=== PATIENT | female | born 1980 | race Caucasian/White ===

== ENCOUNTER 2019-09-11 09:26 | Emergency (ER) | payer BC, SELFPAY ==
--- NOTE | ~2019-09-11 | XR_ITS ---
XR chest 2V 09/11/2019 10:08 Indication: Shortness of breath, cough and fever Procedure: 2 view chest Comparison: No prior studies for comparison. Findings: There is right lower lobe airspace consolidation, consistent with pneumonia. Heart size nor mal. Left lung clear. No pleural effusion or pneumothorax. Impression: 1: Right lower lobe pneumonia. Reviewed, dictated and finalized at location A. TRIC POWER LINE EXAMINER Impression: 1: Right lower lobe pneumonia.
[2019-09-11 09:37] VITALS: BP 141/84; PULSE 104; RESP 20; TEMP 38; O2SAT 97
--- NOTE | 2019-09-11 09:59 | ED.URI ---
HPI - URI/Sore Throat General Chief Complaint: Upper Respiratory Infection Stated Complaint: continued flu symptoms Time Seen by Provider: 09/11/19 09:57 Source: patient and RN notes reviewed Mode of arrival: ambulatory Limitations: no limitations History of Present Illness HPI Narrative: Pt is a 39 y/o female who presents to the ED with c/o flu-like symptoms starting roughly 1 week ago. She notes that she has had a mildly-productive cough, body aches, intermittent fever, RUQ/right lower chest pain, and ABD distension for the past week. Pt states that her temperature minh to 104.5 degrees 2 days ago, but notes that she has been able to keep her temperature relatively under control with Advil. She also reports vomiting secondary to her cough and diarrhea after taking a laxative, but denies any dysuria or sore throat. Pt states that there is no chance of her currently being . MD elicited complaint: other (Flu-like symptoms) Onset (ago): week(s) (1) Consistency: constant Relieving factors: NSAID (Advil) Associated symptoms: fever, cough, abdominal pain (RUQ pain), vomiting, diarrhea and other (body aches; ABD distension) Treatments prior to arrival: ibuprofen Related Data Home Medications Medication Instructions Recorded Confirmed escitalopram oxalate [Lexapro] 20 mg PO DAILY 09/11/19 quetiapine [Seroquel] 100 mg PO HS 09/11/19 trazodone 100 mg PO HS 09/11/19 Allergies Allergy/AdvReac Type Severity Reaction Status Date / Time No Known Allergies Allergy Verified 09/11/19 09:39 Review of Systems Review of Systems: All systems reviewed & are unremarkable except as noted in HPI and below Constitutional: Constitutional: Reports body ache(s) and Reports fever(s) ENT: Denies sore throat Cardiovascular: Cardiovascular: Denies chest pain and Denies dyspnea Respiratory: Respiratory: Reports cough Gastrointestinal: Gastrointestinal: Reports abdominal pain (RUQ pain), Reports bloating, Reports diarrhea and Reports vomiting Genitourinary: Genitourinary: Denies hematuria and Denies dysuria [facility] Past Medical History Medical History Healthy female adult Surgical History Surgical History No significant past surgical history Social History Social History Smoking status: Unknown if ever smoked Gender identity (if verbalized by the patient): Female Exam Const: General: no acute distress and well developed Orientation/consciousness: oriented to person, oriented to place, oriented to time and patient oriented x3 HENMT: Head: normocephalic Neck: Neck: normal visual inspection Chest: Chest palpation & inspection: normal inspection of the chest and no tenderness Resp: Effort & Inspection: normal respiratory effort Auscultation: clear to auscultation bilaterally Cardio: Rate: tachycardic Rhythm: regular rhythm GI: GI Palp: No abdominal tenderness and Yes Soft to palpation Skin: General skin exam: normal color and turgor normal Neuro: General: oriented to person, oriented to place, oriented to time and patient oriented x3 Cognition (Neuro): normal cognition Extrem: General: normal to inspection, full ROM and no pedal edema Psych: Appearance: grossly normal Mental Status: mental status grossly normal Affect: normal affect Course Reevaluation(s) Reevaluation #1: Offered patient possible admission for observation, patient declined and wanted to go home. Date: 09/11/19 Vital Signs Vital signs: Vital Signs Temperature 38.0 C H 09/11/19 09:37 Pulse Rate 104 H 09/11/19 09:37 Respiratory Rate 20 09/11/19 09:37 Blood Pressure 141/84 H 09/11/19 09:37 Pulse Oximetry 97 09/11/19 09:37 Temperature 38.0 C H 09/11/19 09:37 Pulse Rate 64 09/11/19 13:27 Respiratory Rate 18 09/11/19 13:27 Blood Pressure 112/64 09/11/19 13:27 Pulse Oxi
[2019-09-11] MEDS: IBUPROFEN 600 MG TABLET PO (10:43)
[2019-09-11 10:45] LABS: Basophils Percent Auto 0.1 % (0.2-1.2); Eosinophils Percent Auto 0.3 % (0-4.4); Hematocrit 30.3 % (37.0-47.0); Hemoglobin 9.6 g/dL (12.0-15.0); Immature Granulocyte Absolute 0.02 K/mm3 (0.00-0.031); Immature Granulocyte Percent A 0.3 % (0-0.5); Lymphocytes Absolute Auto 0.57 K/mm3 (0.9-3.2); Lymphocytes Percent Auto 8.2 % (18.3-44.2); Mean Corpuscular HGB Conc 31.7 g/dl (32-36); Mean Corpuscular Hemoglobin 26.7 pg (26-34); Mean Corpuscular Volume 84.4 fl (80-100); Mean Platelet Volume 8.9 fl (7.4-10.4); Monocytes Absolute Auto 0.5 K/mm3 (0.1-0.6); Monocytes Percent Auto 6.7 % (2.6-8.5); Neutrophils Absolute Auto 5.8 K/mm3 (1.3-6.7); Neutrophils Percent Auto 84.4 % (45.5-73.1); Platelet Count Result 360 k/mm3 (150-375); Red Blood Count 3.59 M/mm3 (4.2-5.4); Red Cell Distribution Width 14.7 % (11.5-14.5); White Blood Count 6.9 K/mm3 (4.5-10.0)
[2019-09-11 10:59] LABS: Alanine Aminotransferase 17 U/L (4-35); Albumin Level 3.8 g/dL (3.5-5.1); Alkaline Phosphatase 135 U/L (38-126); Aspartate Amino Transferase 28 U/L (14-36); Bilirubin,Total 0.4 mg/dL (0.2-1.3); Calcium 7.7 mg/dL (8.4-10.2); Carbon Dioxide 32 mmol/L (22-30); Chloride 92 mmol/L (98-107); Estimated CRCL calculation 132 ml/min; Estimated Glomerular Filt Rate > 60; Glucose 104 mg/dL (65-105); Potassium 3.1 mmol/L (3.4-5.0); Sodium 134 mmol/L (137-145)
[2019-09-11 11:05] LABS: Blood Urea Nitrogen < 2 mg/dL (7-17)
[2019-09-11 11:25] LABS: Add Urine Microscopic? NO; Appearance Urine Clear (Clear); Bilirubin Urine Negative (Negative); Blood Urine Negative (Negative); Color Urine Colorless (Yellow); Glucose Urine UA Negative (Negative); Ketones Urine Negative (Negative); Leukocyte Esterase Ur Negative LEU/UL (Negative); Nitrate Urine Negative (Negative); Protein Urine Negative (Negative); Specific Grav Ur 1.004 (1.001-1.035); Urobilinogen Urine Negative mg/dL (<2.0)
[2019-09-11 11:35] LABS: Lactic Acid Reflex 0.6 mmol/L (0.7-2.1)
[2019-09-11] MEDS: POTASSIUM CHLORIDE 20 MEQ TABLET PO (12:13)
[2019-09-11 13:27] VITALS: BP 112/64; PULSE 64; RESP 18; O2SAT 100
== END 2019-09-11 13:29 | disposition home or self-care (01) ==
PROVIDERS: Emergency Provider Emergency Medicine; PCP Emergency Medicine
DX: J18.1 Lobar pneumonia, unspecified organism (principal)
CPT/HCPCS: 36415; 71046; 80053; 81003; 81025; 83605; 85025; 87040; 87804; 96365; 96367; A9270; J0456; J0696

== ENCOUNTER 2019-09-30 19:14 | Emergency (ER) | payer BC, SELFPAY ==
--- NOTE | ~2019-09-30 | XR_ITS ---
EXAMINATION: XR chest 1V portable DATE: 09/30/2019 19:41 INDICATION: Shortness of breath. Fever. TECHNIQUE: A single frontal view of the chest was obtained. COMPARISON: Chest 2 views 09/11/2019 FINDINGS: The chest demonstrates clear lungs without pneumonia, pleural effusion, or pneumothorax. Th e heart size is normal. There are bilateral breast implants. IMPRESSION: 1. No acute cardiopulmonary disease. Reviewed, dictated and finalized at location A.
[2019-09-30 19:21] VITALS: BP 133/99; PULSE 74; RESP 18; TEMP 37.1; O2SAT 100
--- NOTE | 2019-09-30 19:36 | ED.URI ---
HPI - URI/Sore Throat General Chief Complaint: Recheck/Abnormal Lab/Rx Stated Complaint: dx with pneumonia 2 weeks ago-fever again Time Seen by Provider: 09/30/19 19:17 Source: patient Mode of arrival: ambulatory Limitations: no limitations History of Present Illness HPI Narrative: Patient presents with chief complaint of low-grade fevers over the past 2 to 3 days. Patient states the highest that she noted was 100.3 ?F. Patient states that she was diagnosed with right lower pneumonia 2 weeks ago and was prescribed a Z-Samuel. Patient states that she felt improved, and only had a lingering dry cough until a few days ago when she noticed low-grade fever. Patient denies taking Tylenol or ibuprofen or any other antipyretics today. Patient denies any shortness of breath, wheezing, nausea, vomiting or diarrhea. Patient reports feeling some soreness in the lower right aspect where she was told that her pneumonia was present. Patient states she wonders if she to be tested for covid- 19. Patient denies international travel or known covid exposure. Related Data Allergies Allergy/AdvReac Type Severity Reaction Status Date / Time No Known Allergies Allergy Unverified 09/30/19 19:21 Review of Systems Review of Systems: Narrative: CONSTITUTIONAL: Reports a low-grade fever, denies chills, or sweats. EYES: Denies visual changes, redness, or discharge. ENT: Denies rhinorrhea, congestion, sore throat, or otalgia. CARDIOVASCULAR: Denies chest pain, palpitations, or edema. RESPIRATORY: Reports cough denies dyspnea. GASTROINTESTINAL: Denies abdominal pain, nausea, vomiting, or diarrhea. GENITOURINARY: Denies dysuria or hematuria. SKIN: Denies rash or itching. MUSCULOSKELETAL: Denies back pain, joint pain, or myalgia. NEUROLOGIC: Denies headache, numbness, dizziness, or weakness. PSYCHIATRIC: Denies anxiety or depression. PMFSH Social History Social History Gender identity (if verbalized by the patient): Female Exam Narrative: Exam Narrative: GENERAL: Well-appearing, well-nourished, and in no acute distress. HEAD: Normocephalic, atraumatic. EYES: PERRLA and EOMI. ENT: Nares clear, no rhinorrhea or epistaxis. Mucous membranes moist. Oropharynx without tonsillar hypertrophy exudate or other lesions. Bilateral TMs pearly ortiz nonbulging NECK: Supple. No adenopathy or masses. No carotid bruits or JVD CHEST: Clear to auscultation. No respiratory distress. No wheezes rales or rhonchi. Not tachypneic. Dry cough noted during exam. HEART: Regular rate and rhythm. ABDOMEN: Soft, nontender, nondistended. EXTREMITIES: Normal range of motion. No edema. SKIN: Warm, dry, no rash. NEURO: No focal deficits. Alert and oriented x3. PSYCH: Normal mood and affect. Course Vital Signs Vital signs: Vital Signs Temperature 98.7 F 09/30/19 19:21 Pulse Rate 74 09/30/19 19:21 Respiratory Rate 18 09/30/19 19:21 Blood Pressure 133/99 H 09/30/19 19:21 Pulse Oximetry 100 09/30/19 19:21 Temperature 98.7 F 09/30/19 19:21 Pulse Rate 74 09/30/19 19:21 Respiratory Rate 18 09/30/19 19:21 Blood Pressure 133/99 H 09/30/19 19:21 Pulse Oximetry 100 09/30/19 19:21 MDM - URI/Sore Throat MDM Narrative Medical decision making narrative: Patient vital signs are stable and she is not hypoxic. Patient is not tachypneic or having any trouble breathing. Patient does not have findings of pneumonia on her chest x-ray. Patient is discharged home and instructed to self quarantine. Patient instructed to contact the health department for further recommendations and instructions on possible COVID testing. Return to emergency department if you have any emergent symptoms. Differential Diagnosis Differential diagnosis: Likely upper respiratory infection, croup, otitis media, sinusitis, viral infection, bronchitis, influenza and pharyngitis Lab Data Labs: Influenza A Screen Negative Reference Range: Negative Influenza B Scre
[2019-09-30 20:30] VITALS: BP 126/87; PULSE 78; RESP 20; O2SAT 99
== END 2019-09-30 20:32 | disposition home or self-care (01) ==
PROVIDERS: Emergency Provider Emergency Medicine; PCP Emergency Medicine
DX: J06.9 Acute upper respiratory infection, unspecified (principal)
CPT/HCPCS: 71045; 87804; 99283

== ENCOUNTER 2022-06-04 12:42 | Emergency (ER) | payer BC, SELFPAY ==
--- NOTE | ~2022-06-04 | XR_ITS ---
EXAMINATION: XR chest 2V 06/04/2022 13:06 INDICATION: Cough and wheezing. Fever. PROCEDURE: 2 view chest COMPARISON: 09/30/2019 FINDINGS: The lungs are clear. The cardiomediastinal silhouette is within normal limits. There are no pleural effusions. There is no pneumothorax suspected. IMPRESSION: 1: NO ACUTE CARDIOPULMONARY DISEASE. Reviewed, dictated and finalized at location A. EL HANDLE ASSEMBLER
[2022-06-04 12:46] VITALS: BP 132/104; PULSE 96; RESP 16; TEMP 37.2; O2SAT 97
--- NOTE | 2022-06-04 12:49 | ED.URI ---
HPI - URI/Sore Throat General Chief Complaint: Upper Respiratory Infection Stated Complaint: COUGH/SOB Time Seen by Provider: 06/04/22 12:49 Source: patient, RN notes reviewed and old records reviewed Mode of arrival: ambulatory Limitations: no limitations History of Present Illness HPI Narrative: 41-year-old female presents to the [facility] with complaints of shortness of breath and cough for the last 2 weeks. The last 5 days she lost her voice. Reports fever several days ago but nothing recently. Related Data Home Medications Medication Instructions Recorded Confirmed escitalopram oxalate 20 mg tablet 20 mg PO DAILY 09/11/19 07/03/20 (Lexapro) quetiapine 100 mg tablet (Seroquel) 100 mg PO HS 09/11/19 07/03/20 trazodone 100 mg tablet 100 mg PO HS 09/11/19 07/03/20 Allergies Allergy/AdvReac Type Severity Reaction Status Date / Time No Known Allergies Allergy Verified 06/04/22 12:56 Review of Systems Review of Systems: All systems reviewed & are unremarkable except as noted in HPI and below Constitutional: Constitutional: Reports no additional constitutional complaints Eyes: Eyes: Reports no additional eye complaints ENT: Reports as per HPI Cardiovascular: Cardiovascular: Reports no additional cardiovascular complaints, Denies chest pain and Denies dyspnea Respiratory: Respiratory: Reports as per HPI, Denies chest congestion, Reports cough and Denies dyspnea Gastrointestinal: Gastrointestinal: Reports no additional gastrointestinal complaints Musculoskeletal: Musculoskeletal: Reports no additional musculoskeletal complaints Integumentary/Breasts: Skin/Breast: Reports system reviewed and no additional complaints, except as docu Neurologic: Reports system reviewed and no additional complaints, except as documented Psychiatric: Psychiatric: Reports no additional psychiatric complaints Allergic/Immunologic: Allergic/Immunologic: Reports no additional allergic/immunologic complaints [facility] Past Medical History Medical History 2000 Anemia Anemia Anxiety Bipolar 1 disorder Depression Healthy female adult Hyperthyroidism Surgical History Surgical History History of bilateral breast implants No significant past surgical history [place] teeth extracted Family History Family History Grandparent Carcinoma of colon Grandparent Diabetes mellitus Acute myocardial infarction Father Hypertension Mother Hypertension Social History Social History Smoking status: Former smoker Smoking end date: 07/07/16 Alcohol intake: current Drinks per week: 15 Substance use: current Substance use type: marijuana Gender identity (if verbalized by the patient): Female Comments At the time of my signature, I reviewed and agree with the nursing past medical, surgical, social, and family history. There is no relevant family history pertinent to the patient complaint. Exam Const: General: cooperative, healthy appearing, comfortable, no acute distress, well developed, alert and average body habitus Nutritional Appearance: average body habitus Orientation/consciousness: patient oriented x3 Limitations: no limitations HENMT: Head: normal to inspection Ears: hearing grossly normal bilaterally Face/Nose/Sinus: Normal external nose present, Normal nares present, Normal nasal mucous membranes and turbinates present and normal facial exam Face and sinus: normal facial exam Mouth: Yes Normal oral and palatal mucosa present, Yes lip normal and Yes moist mucous membranes Throat: posterior oropharynx normal and uvula midline Eyes: General: appearance normal, both eyes and all related structures Alignment and Position: alignment normal Periorbital: periorbi
== END 2022-06-04 13:20 | disposition home or self-care (01) ==
PROVIDERS: Emergency Provider Nurse Practitioner; PCP Emergency Medicine
DX: J40 Bronchitis, not specified as acute or chronic (principal); Z87.891 Personal history of nicotine dependence
CPT/HCPCS: 71046; 99213; G0463

== ENCOUNTER 2025-07-01 18:59 | Emergency (ER) | payer SELFPAY ==
--- OUTSIDE RECORDS SUMMARY | 2025-07-01 19:02 | XMS_ITS | Clinical Summary ---
Author Organization [facility] [employer] Address [address] [place] [address] Care Team Providers Care Electric Relay Tester Name Role Phone Nancy Castañeda MD Primary Care Provider Unatressa ilable Source Comments [facility] [employer],non-owned Affiliates and Associated Physician Practices is amultiple site organization consisting of ambulatory clinics and hospital sitesin [place], [place], [place] and [place]. This disclosure is being madepursuant to the Care Everywhere program and may not contain all information available regarding this patient. Last updated 18.[facility] [employer] Allergies No known active allergies Medications * This document contains information received from the source organization and may not represent a complete record from that organization. * Be aware that medications may not be up to date on this document. Alwaysverify current medications with the patient. LORazepam (ATIVAN) 2 MG tabletIndicatio ns:Anxiety Take 1 Tab by mouth at bedtime. Indications: Feeling Anxious 15 Tab 1 3 Active QUEtiapine (SEROQUEL) 200 MG tabletIndicatio ns:Manic Phase of Bipolar Mood Disorder Take 1 Tab by mouth at bedtime. Indications: Manic Phase of Manic-Depression 15 Tab 1 3 Active propranolol (INDERAL) 20 MG tabletIndicatio ns:hyperthyroid Take 1 Tab by mouth every morning. Indications: hyperthyroid 15 Tab 1 3 Active propranolol (INDERAL) 10 MG tabletIndicatio ns:hyperthroid Take 3 Tabs by mouth at bedtime. Indications: hyperthroid 45 Tab 1 3 Active Active Problems Problem Noted Date Diagnosed Date Mood disorder 05/21/2013 Family History Medical History Relation Name Comments Depression Father Relation Name Status Comments Father Alive Mother Alive Social History Tobacco Use Types Packs/Day Years Used Date Smoking Tobacco: Never Tobacco Cessation:Counseling Given: No Alcohol Use Standard Drinks/Week Comments No 0 (1 standard drink = 0.6 oz pur e alcohol) Comments No Sex and Gender Information Value Date Recorded Sex Assigned at Not on file Legal Sex Female 12:55 PM CDT Gender Identity Not on file Sexual Orientation Not on file Last Filed Vital Signs Vital Sign Reading Time Taken Comments Blood Pressure 117/85 05/23/2013 3:03 PM TREE AND SHRUB WORKER Pulse 83 05/23/2013 3:03 PM TREE AND SHR[employer] WORKER Temperature 37.2 C (98.9 F) 05/23/2013 3:03 PM TREE AND [employer] WORKER Respiratory Rate 18 05/23/2013 3:03 PM TREE AND SHRUB WORKER Oxygen Saturation 93% 05/23/2013 3:0 3 PM TREE AND SHRUB WORKER Inhaled Oxygen Concentration - - Weight 53 kg (116 lb 12.8 oz) 05/20/2013 8:56 AM TREE AND SHRUB WORKER Height 160 cm (5' 3) 05/20/2013 8:56 AM TREE AND SHRUB WORKER re-entered for BMI calculation Body Mass Index 20.69 05/20/2013 8:56 AM TREE AND SHRUB WORKER Plan of Treatment Health Maintenance Due Date Last Done Comments LIPID TESTING 1980 MAMMOGRAM 1980 HIV SCREENING 1995 HEPATITIS C SCREENING 07/03/1998 DTAP/TDAP/TD VACCINES (1 - Tdap) 1999 HEPATITIS B VACCINE (1 of 3 - 19+ 3-dose series) 1999 HPV VACCINE (1 - 3-dose SCDM series) 2007 DEPRESSION SCREENING 2024 COVID-19 VACCINE (1 - 2024-2 6 season) 2025 INFLUENZA VACCINE (#1) 2025 ZOSTER VACCINE (1 of 2) 2030 HIB VACCINE Aged Out No longer eligi ble based on patient's age to complete this topic MENINGOCOCCAL (Group B) VACC INE SHARED DECISION-MAKING Aged Out No longer eligibl e based on patient's age to complete this topic MENINGOCOCCAL GROUPS A/C/Y/W VACCINE Aged Out No longer eligible b ased on patient's age to complete this topic PNEUMOCOCCAL VACCINE Aged Out No long er eligible based on patient's age to complete this topic Advance Directives * FULL RESUSCITATION (Latest Code Status on File) Date Activated Date Inactivated Comments 05/18/2013 6:30 PM 05/23/2013 7:05 PM * FULL RESUSCITATION Date Activated Date Inactivated Comments 05/18/2013 5:21 PM 05/18/2013 6:30 PM * FULL RESUSCITATION Date Activated Date Inactivated Comments 05/17/2013 9:07 PM 05/18/2013 5:21 PM Care Teams Electric Relay Tester Relationship Specialty Start Date End Date Nancy Castañeda MD PCP - General Internal Medicine 05/17/13
--- OUTSIDE RECORDS SUMMARY | 2025-07-01 19:02 | XMS_ITS | Clinical Summary ---
Author Organization [facility] Address [address] [place] [phone] Phone Care Team Providers Care Packerhead Machine Operator Name Role Phone Unavailable Primary Care Provider Unavailabl e Allergies No known active allergies Medications escitalopram oxalate (LEXAPRO) 20 mg tablet Take 1 Tablet by mouth daily. 5 Active QUEtiapine (SEROquel) 100 mg tablet Take 100 mg by mouth daily at bedtime. 5 Active traZODone (DESYREL) 100 mg tablet take 1 tablet by mouth once a day at bedtime 5 Active ondansetron (ZOFRAN) 4 mg Tablet Take 1 Tablet (4 mg) by mouth every 8 hours as needed for Nausea. 30 Tablet 1 5 Active Additional Information Patient not taking.Reported on 05/03/2025 epinastine (ELESTAT) 0.05 % solution Ophthalmic 4 Active drospirenone, contraceptive, (Slynd) 4 mg (28) Tablet Take 1 Tablet (4 mg) by mouth daily. 28 Tablet 11 5 Active Additional Information Patient not taking.Reported on 05/03/2025 Active Problems Problem Noted Date Diagnosed Date Normocytic anemia 03/09/2025 Overview (03/09/2025): 01/2025 -WBC 8.3, RBC 4.5, hemoglobin 11.5 g, hematocrit 37, MCV 82, platelets 514. B12 - 1474, Folate - 18. Normal creatinine, TP and calcium. 2007 - Diagnosed with Celiac disease on a scope with atrophied terminal ileum villi She gets skin rash with gluten intake. 2003 - Was started on oral iron 150 mg/day over 3 doses with vitamin C. She has chronic constipated. Never needed blood transfusion or IV iron. 01/09/25 - Serum iron 19, iron % saturation - 7, ferritin 60, TIBC 263. 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 Since she has been on oral iron and has not been responding, I will arrange IV iron (based on her insurance preference). Will monitor CBC, iron panel and ferritin every 3 months and plan to see her in the office in 6 months. Advised to to follow-up strict gluten-free diet since she has documented Celiac disease (based villous atrophy and terminal ileum). She knows to contact me for symptoms of progressive anemia or iron deficiency. She verbalized understanding of today's discussion, was satisfied with the office visit, and had no further questions. Thrombocytosis 03/09/2025 Overview (03/09/2025): 01/2025 -WBC 8.3, RBC 4.5, hemoglobin 11.5, hematocrit 37, MCV 82, platelets 514. Assessment & Plan (03/09/2025 3:21 PM CDT): I had a detailed discussion with Susan and explained the cause of thrombocytosis including primary versus secondary. Primary causes would be due to essential thrombocytosis or myeloproliferative disorder. Secondary causes would be due to infection, inflammation, hemorrhage, recent surgery, iron deficiency, prior splenectomy, chronic smoking. I feel he underlying inflammation and iron deficiency may be contributing to thrombocytosis, will monitor. Iron deficiency anemia due to chronic blood loss 03/09/2025 Encounters Date Type Department Care Team Description 06/28/2025 External Device Data STL ABSTRACTION Provider, Abstract 06/07/2025 External Device Data STL ABSTRACTION Provider, Abstract 06/06/2025 Orders Only [facility] Oncology and Hematology [place] [facility] [address] [place] [phone] Mile Correa MD Iron deficiency anemia due to chronic blood loss 05/30/2025 Orders Only [facility] Oncology and Hematology [place] [facility] [address] [facility] [address] [place] [address] Mile Correa MD Normocytic anemia; Iron deficiency anemia due to chronic blood loss 05/11/2025 External Device Data STL ABSTRACTION Provider, Abstract 05/04/2025 External Device Data STL ABSTRACTION Provider, Abstract 05/03/2025 1:45 PM CDT Procedure visit [facility] [address] [place] [address] [place] [phone] Fabian Schafer MD Encounter for IUD insertion (Primary Dx) 04/26/2025 External Device Data STL ABSTRACTION Provider, Abstract 04/12/2025 Results Follow-Up [address] [phone] Fabian Schafer MD CERV/VAG CYTO AGE BASED SCREEN PAP W CT/NG, TRICH 04/06/2025 11:30 AM CDT [facility] [id number] [place] [address] [place] [phone] Fabian Schafer MD Well woman exam with routine gynecological exam (Primary Dx); Screening for cervical cancer; Screening for human papillomavirus (HPV); Visit for screening mammogram; Screen for STD (sexually transmitted disease) from Last 3 Months Family History Medical History Relation Name Comments Other Mother polycythemia ve ra No Known Problems Other Relation Name Status Comments Mother Other Social History Tobacco Use Types Packs/Day Years Used Date Smoking Tobacco: Never Smokeless Tobacco: Never Tobacco Cessation:Counseling Given: Not Answered Alcohol Use Standard Drinks/Week Comments Never 0 (1 standard drink = 0.6 oz pur e alcohol) Feeling Safe Answer Date Recorded Are you in a relationship wi th someone who hurts you emotionally and/or physically? No 03/09/2025 Comments No Sex and Gender Information Value Date Recorded Sex Assigned at Not on file Legal Sex Female 4:16 PM CDT Gender Identity Not on file Sexual Orientation Not on file Last Filed Vital Signs Vital Sign Reading Time Taken Comments Blood Pressure 123/78 05/03/2025 1:49 PM CDT Pulse 77 05/03/2025 1:49 PM CDT Temperature 36.3 C (97.4 F) 03/28/2025 4:35 PM CDT Respiratory Rate 16 03/21/2025 1:16 PM CDT Oxygen Saturation 98% 05/03/2025 1:49 PM CDT Inhaled Oxygen Concentration - - Weight 60.8 kg (134 lb) 05/03/2025 1:49 PM CDT Height 162.6 cm (5' 4) 05/03/2025 1:49 PM CDT Body Mass Index 23 05/03/2025 1:49 PM CDT Plan of Treatment Upcoming Encounters Date Type Department Care Team (Late st Contact Info) Description 09/07/2025 3:00 PM PSYCHOLOGIST PERSONNEL Office Visit [facility] Oncology and Hematology [place] [facility] [address] [facility] [address] [place] [address] Mile Correa MD [address] [place] [address] 04/11/2026 10:00 AM CDT Office Visit [facility] - [facility] [place] [address] [address] Fabian Schafer MD [address] [id number] [place] [address] Health Maintenance Due Date Last Done Comments DTAP/TDAP/TD VACCINES (1 - Tdap) 1999 HEPATITIS B VACCINES (1 of 3 - 19+ 3-dose series) 07/1999 BREAST CANCER SCREENING 2020 INFLUENZA VACCINE (#1) 2025 PAP SMEAR 04/06/2028 04/06/2025 CERVICAL CANCER SCREENING 04/06/2030 HPV/Cotest (21-29) 04/06/2030 04/06/2025 HPV/Cotest (30-65) 04/06/2030 04/06/2025 HPV VACCINES (No Doses Required) Completed Procedures Procedure Name Priority Date/Time Associated Diagnosis Comments WA MIRENA, 52 MG Routine 05/03/2025 2:55 PM CDT Encounter for IUD insertion WA INSERTION INTRAUTERINE DEVICE IUD Routine 05/03/2025 2:55 PM CDT Encounter for IUD insertion POC , URINE Routine 05/03/2025 1:52 PM CDT Encounter for IUD insertion CERV/VAG CYTO AGE BASED SCREEN PAP W CT/NG, TRICH Routine 04/06/2025 11:48 AM CDT Well woman exam with routine gynecological exam Screening for cervical cancer Screening for human papillomavirus (HPV) Screen for STD (sexually transmitted disease) from Last 3 Months Results * WA INSERTION INTRAUTERINE DEVICE IUD, WA MIRENA, 52 MG (05/03/2025 2:55 PM CDT) Brisa [facility] [place] - 05/03/2025 2:55 PM CDT Fabian Schafer MD 05/03/2025 2:56 PM Susan Ledesma is a 44 y.o. presenting for IUD placement. The risks, benefits, and indications were discussed with the patient. I also discussed the possibility that she might experience light, moderate, or heavy bleeding during the first couple months following insertion. Irregular bleeding is quite common during this period. Informed consent was obtained. UPT: negative With the patient in dorsal lithotomy position, a speculum was placed and the cervix was cleansed with betadine. A tenaculum was attached to the anterior lip of the cervix, paracervical block placed and the uterus was gently sounded to 7cm. The IUD sleeve was introduced through the cervix to the uterine fundus, and the device was deployed. The sleeve was withdrawn and the strings were cut to the appropriate length. The tenaculum was removed, and the tenaculum sites were hemostatic. The patient tolerated the procedure well. Follow up in office yearly. us Fabian Schafer MD PROCEDURE/MINOR SURGICAL ORD ERABLES Final Result Performing Organization Address City/[facility]/ZIP Co de Phone Number [facility] [place] MURGUIAIA# [id number] [address] [address] * POC , URINE (05/03/2025 1:52 PM CDT) HCG QUAL URINE POC Negative Negative, Indeterminate [facility] [place] INTER[facility] KIT QC POC Pass Pass [facility] KIT LOT NUMBER POC [id number] [facility] [place] KIT EXP DATE POC 09/30/2026 [facility] Urine 05/03/2025 1:5 2 PM CDT Fabian Schafer MD POINT OF CARE TESTING Final Result Performing Organization Address [facility] Co de Phone Number [facility] FAJARDO# [id number] [address] [address] * (ABNORMAL) CERV/VAG CYTO AGE BASED SCREEN PAP W CT/NG, TRICH (04/06/2025 11:48 AM CDT) COMMENT (PAP): [email or web address] Comment: This order for age-based cervical cancer and STI screening follows ACOG guidelines(PB 168, 140, QDW468). See individual assays for performing site location. CLINICAL INFORMATION [email or web address] Comment:None given LAST MENSTRUAL PERIOD [email or web address] Comment:NONE GIVEN PREV PAP: [email or web address] Comment:NONE GIVEN PREV BX: [facility] Comment:NONE GIVEN SOURCE [facility] Comment:Endocervix ADEQUACY: [facility] Comment: Satisfactory for evaluation. Endocervical/transformation zone component present. Age and/or menstrual status not provided GENERAL CATEGORIZATION: (A) [email or web address] Comment:Cytology Results: Ep ithelial Cell Abnormality PAP INTERP (A) [email or web address] Comment: Atypical Squamous Cells of Undetermined Significance (ASC-US) COMMENT (PAP TEST) Q [facility]est [facility] Comment: This Pap test has been evaluated with the ThinPrep(R) Imaging System. BUYER LIAISON: [facility] Comment: SRR, CT(ASCP) CT Screening Location: [facility], [address] [place] [address] CLIA: [id number] Slide preparation performed at: [facility], [address] [place] [address] CLIA: [id number] PATHOLOGIST [facility] Comment: Ruben Elizabeth M.D., Board Certified in Anatomic Pathology and Clinical Pathology. (electronic signature) Pathologist Release Date/Time: 04/11/2025 10:34AM EXPLANATORY NOTE Que [facility] Comment: EXPLANATORY NOTE: The Pap is a screening test for cervical cancer. It is not a diagnostic test and is subject to false negative and false positive results. It is most reliable when a satisfactory sample, regularly obtained, is submitted with relevant clinical findings and history, and when the Pap result is evaluated along with historic and current clinical information. HPV E6/E7 Not Detected Not Detected [email or web address] Comment: Methodology: Textile Machinery Instructor-Mediated Amplification This assay detects E6/E7 viral messenger RNA (mRNA) from 14 high-risk HPV types (16,18,31,33,35,39,45,51,52,56,58,59,66,68). Cervical sources are required for HPV testing. If a vaginal source from a patient who has had a total hysterectomy with removal of cervix was submitted, please contact the testing laboratory for alternative testing options. For additional information, please refer to http://education.Verbling/faq/EGR549a9 (This link if provided for information/ educational purposes only.) CHLAMYDIA TRACHOMATIS RNA, TMA, UROGENITAL NOT DETECTED NOT DETECTED [facility] NEISSERIA GONORRHOEAE RNA, TMA, UROGENITAL NOT DETECTED NOT DETECTED [email or web address] COMMENT INFECTIOUS DISEASE [facility] Comment: The analytical performance characteristics of this assay, when used to test SurePath(TM) specimens have been determined by [facility]. The modifications have not been cleared or approved by the FDA. This assay has been validated pursuant to the CLIA regulations and is used for clinical purposes. For additional information, please refer to https://education.Verbling/faq/HEQ584 (This link is being provided for information/ educational purposes only.) TRICHOMONAS VAGINALIS,QUALITAT JULIO,PAP VIAL NOT DETECTED NOT DETECTED [facility] Comment: The analytical performance characteristics of this assay have been determined by [facility]. The modifications have not been cleared or approved by the FDA. This assay has been validated pursuant to the CLIA regulations and is used for clinical purposes. For additional information, please refer to [email or web address].Verbling/ faq/Trichomonastma (This link is being provided for information/ educational purposes only.) Test Performed at: [facility] [address] [place] [address] Ignacio Gonzalez Genital SWAB OF ENDOCERVIX / Unknown 04/06/2025 11:48 AM CDT 04/07/2025 4:00 PM CDT Fabian Schafer MD PATHOLOGY/CYTOLOGY ORDERABLE S Final Result [facility] [phone] [address] from Last 3 Months Insurance [facility] INDIVIDUAL EXCHANGE [id number]
--- OUTSIDE RECORDS SUMMARY | 2025-07-01 20:25 | XMS_ITS | Clinical Summary ---
Author Organization [facility] Address [address] [place] [phone] Phone Care Team Providers Care Roving Sizer Name Role Phone Unavailable Primary Care Provider [...] STL ABSTRACTION Provider, Abstract 06/06/2025 Orders Only [facility] Oncology and Hematology [facility] [address] [place] [phone] Mile Correa MD Iron deficiency anemia due to chronic blood loss 05/30/2025 Orders Only [facility] Oncology and Hematology [facility] [address] [facility] [address] [place] [address] Mile Correa MD Normocytic anemia; Iron deficiency anemia due to chronic blood loss 05/11/2025 External Device Data STL ABSTRACTION Provider, Abstract 05/04/2025 External Device Data STL ABSTRACTION Provider, Abstract 05/03/2025 1:45 PM CDT Procedure visit [facility] MANAGER ROOM [facility] [address] [place] [address] [place] [address] Fabian Schafer MD Encounter for IUD insertion (Primary Dx) 04/26/2025 External Device Data STL ABSTRACTION Provider, Abstract 04/12/2025 Results Follow-Up [address] [address] Fabian Schafer MD CERV/VAG CYTO AGE BASED SCREEN PAP W CT/NG, TRICH 04/06/2025 11:30 AM CDT Office Visit [facility] [address] [place] [address] [place] [address] Fabian Schafer MD Well woman exam [...] st Contact Info) Description 09/07/2025 3:00 PM CHURCH MUSICIAN Office Visit [facility] Oncology and Hematology [facility] [address] [facility] [address] [place] [address] Mile Correa MD [address] [place] [address] 04/11/2026 10:00 AM CDT Office Visit [facility] MANAGER ROOM - Medical [place] [address], [place] [address] Fabian Schafer MD [id number] [place] [address] Health Maintenance Due Date Last [...] Procedure Name Priority Date/Time Associated Diagnosis Comments NM MIRENA, 52 MG Routine 05/03/2025 2:55 PM CDT Encounter for IUD insertion NM INSERTION INTRAUTERINE DEVICE IUD Routine 05/03/2025 2:55 [...] disease) from Last 3 Months Results * NM INSERTION INTRAUTERINE DEVICE IUD, NM MIRENA, 52 MG (05/03/2025 2:55 PM CDT) Brisa BOSE MANAGER ROOM - [place] - 05/03/2025 2:55 PM CDT [...] ORD ERABLES Final Result Performing Organization Address City/[facility]/ZIP Co de Phone Number JUICE MANAGER ROOM - [place] MURGUIAIA# [id number] [address] [address] * POC , URINE (05/03/2025 1:52 PM CDT) HCG QUAL URINE POC Negative Negative, Indeterminate [facility] [place] K[facility] QC POC Pass Pass [facility] [place] KIT LOT NUMBER POC [phone] [facility] [place] KIT EXP DATE POC 09/30/2026 [facility] [place] Urine 05/03/2025 1:5 2 PM CDT Fabian Schafer MD POINT OF CARE TESTING Final Result Performing Organization Address [facility] Co de Phone Number JUICE MANAGER ROOM - [place] FAJRADO# [id number] [address] [address] * (ABNORMAL) CERV/VAG CYTO AGE BASED SCREEN PAP W CT/NG, TRICH (04/06/2025 11:48 AM CDT) COMMENT (PAP): [facility] Comment: This order for age-based cervical cancer and STI screening follows ACOG guidelines(PB 168, 140, INC010). See individual assays for performing site location. CLINICAL INFORMATION [facility] Comment:None given LAST MENSTRUAL PERIOD [facility] Comment:NONE GIVEN PREV PAP: [facility] Comment:NONE GIVEN PREV BX: [facility] Comment:NONE GIVEN SOURCE [facility] Comment:Endocervix ADEQUACY: [facility] Comment: Satisfactory for evaluation. Endocervical/transformation zone component present. Age and/or menstrual status not provided GENERAL CATEGORIZATION: (A) [facility] Comment:Cytology Results: Ep ithelial Cell Abnormality PAP INTERP (A) [facility] Comment: Atypical Squamous Cells of Undetermined Significance (ASC-US) COMMENT (PAP TEST) Q uest [facility] Comment: This Pap test has been evaluated with the ThinPrep(R) Imaging System. MANAGER ACCESS: [facility] Comment: SRR, CT(ASCP) CT Screening Location: [facility], [address] [place] [address] CLIA: [id number] Slide preparation performed at: [facility], [address] [place] [address] CLIA: [id number] PATHOLOGIST [facility] Comment: Ruben Elizabeth M.D., Board Certified in Anatomic Pathology and Clinical Pathology. (electronic signature) Pathologist Release Date/Time: 04/11/2025 10:34AM EXPLANATORY NOTE Que [facility] Comment: EXPLANATORY NOTE: The Pap is a [...] information. HPV E6/E7 Not Detected Not Detected [facility] Comment: Methodology: Loom Fixer Apprentice-Mediated Amplification This assay detects E6/E7 viral messenger RNA (mRNA) from 14 high-risk HPV types (16,18,31,33,35,39,45,51,52,56,58,59,66,68). Cervical sources are required for HPV testing. If a vaginal source from a patient who has had a total hysterectomy with removal of cervix was submitted, please contact the testing laboratory for alternative testing options. For additional information, please refer to http://education.GardenStory/faq/JNW882b8 (This link if provided for information/ educational purposes only.) CHLAMYDIA TRACHOMATIS RNA, TMA, UROGENITAL NOT DETECTED NOT DETECTED [facility] NEISSERIA GONORRHOEAE RNA, TMA, UROGENITAL NOT DETECTED NOT DETECTED [facility] COMMENT INFECTIOUS DISEASE [facility] Comment: The analytical performance characteristics of this assay, when used to test SurePath(TM) specimens have been determined by [facility]. The modifications have not been cleared or approved by the FDA. This assay has been validated pursuant to the CLIA regulations and is used for clinical purposes. For additional information, please refer to https://education.GardenStory/faq/KBQ429 (This link is being provided for information/ educational purposes only.) TRICHOMONAS VAGINALIS,QUALITAT JULIO,PAP VIAL NOT DETECTED NOT DETECTED [facility] Comment: The analytical performance characteristics of this assay have been determined by [facility]. The modifications have not been cleared or approved by the FDA. This assay has been validated pursuant to the CLIA regulations and is used for clinical purposes. For additional information, please refer to http://Resverlogix.GardenStory/ faq/Trichomonastma (This link is being provided for information/ educational purposes only.) Test Performed at: [facility] [address] [place] [address] Ignacio Gonzalez Genital SWAB OF ENDOCERVIX / Unknown 04/06/2025 11:48 AM CDT 04/07/2025 4:00 PM CDT Fabian Schafer MD PATHOLOGY/CYTOLOGY ORDERABLE S Final Result [facility] [phone] [address] from Last 3 Months Insurance [facility] INDIVIDUAL EXCHANGE [id number]
--- OUTSIDE RECORDS SUMMARY | 2025-07-01 20:25 | XMS_ITS | Clinical Summary ---
Author Organization [facility] [employer] Address [address] [place] [address] Care Team Providers Care Manager Field Services Name Role Phone Nancy Castañeda MD Primary Care Provider Unatressa ilable Source Comments [facility] [employer],non-owned Affiliates and Associated Physician Practices is amultiple site organization consisting of ambulatory clinics and hospital sitesin [place], [place], [place] and [place]. This disclosure is being madepursuant to the Care Everywhere program and may not contain all information available regarding this patient. Last updated 18.[facility] [employer] Allergies No known active allergies Medications * [...] Comments Blood Pressure 117/85 05/23/2013 3:03 PM ASSOCIATE DENTIST Pulse 83 05/23/2013 3:03 PM ASSOCIATE DENTIST Temperature 37.2 C (98.9 F) 05/23/2013 3:03 PM ASSOCIATE DENTIST Respiratory Rate 18 05/23/2013 3:03 PM ASSOCIATE DENTIST Oxygen Saturation 93% 05/23/2013 3:0 3 PM ASSOCIATE DENTIST Inhaled Oxygen Concentration - - Weight 53 kg (116 lb 12.8 oz) 05/20/2013 8:56 AM ASSOCIATE DENTIST Height 160 cm (5' 3) 05/20/2013 8:56 AM ASSOCIATE DENTIST re-entered for BMI calculation Body Mass Index 20.69 05/20/2013 8:56 AM ASSOCIATE DENTIST Plan of Treatment Health Maintenance Due Date [...] 9:07 PM 05/18/2013 5:21 PM Care Teams Manager Field Services Relationship Specialty Start Date End Date Nancy Castañeda MD PCP - General Internal Medicine 05/17/13
== END 2025-07-01 20:43 | disposition left against medical advice (07) ==
LOC: ANHED 20:23
PROVIDERS: PCP Emergency Medicine
DX: R51.9 Headache, unspecified (principal)
CPT/HCPCS: 99199